=== PATIENT | female | born 1965 | race Two or more races ===

== ENCOUNTER 2023-11-20 04:45 | Emergency (ER) | payer OTHER ==
[~2023-11-20] VITALS: Ht 154.9 cm; Wt 60.0 kg
[2023-11-20] MEDS ORDERED: ALBUTEROL SULF 2.5 MG/0.5ML(0.5%) NEB SOLN NEB ONE (05:00)
[2023-11-20] MEDS ORDERED: IPRATROPIUM BROM 0.5 MG/2.5ML INH SOL NEB ONE (05:00)
[2023-11-20] MEDS ORDERED: METH4PAK PO (05:21)
[2023-11-20] MEDS ORDERED: AZIT1POW PO (05:21)
[2023-11-20] MEDS: ALBUTEROL SULF 2.5 MG/0.5ML(0.5%) NEB SOLN HHN ONE (05:23)
[2023-11-20] MEDS: IPRATROPIUM BROM 0.5 MG/2.5ML INH SOL HHN ONE (05:23)
[2023-11-20] MEDS: methylPREDNISolone SOD SUCC 125 MG/2 ML VL IM ONE (07:20)
[2023-11-20 07:28] VITALS: BP 113/69; PULSE 94; RESP 18; O2SAT 97
== END 2023-11-20 07:30 | disposition home or self-care (01) ==
LOC: ER 04:45
DX: J45.909 Unspecified asthma, uncomplicated (principal); E11.9 Type 2 diabetes mellitus without complications; I10 Essential (primary) hypertension; Z90.710 Acquired absence of both cervix and uterus; Z88.1 Allergy status to other antibiotic agents
CPT/HCPCS: 71045; 94640; 96372; 99283; J2930; J7644